=== PATIENT | male | born 1930 | race Caucasian/White ===

== ENCOUNTER 2018-03-14 16:52 | Emergency (ER) | payer OTHER ==
[2018-03-14] MEDS: 0.9 % SODIUM CHLORIDE 500 ML IV ONE (17:15)
--- NOTE | 2018-03-14 17:18 | ED Physician Documentation ---
General Adult - HISTORIAN Historian: paramedics, child (daughter) - [facility] Chief Complaint: Code Blue (cardiac arrest) Additional Information: 87yo white male with history of Atrial Fib, CHF and CKD. Had just gone to the bathroom when his family mambers helped him get back into his wheelchair. Shortly after exiting the bathroom he slumped over in his chair. Patient was lowered to the flood. No pulse could be felt and CPR was started by a bystander. When paramedics arrived patient appreared to be in PEA. Family members were indecisive about code status. Patient was intubated and IV was established. Patient was given 2 amps of Epi at the scene and in route. At arrival at ED patient had a palpable pulse. BS were equal bilaterally. Patient was continued with CPR for another cycle. Chest compression were then stopped. BP was obtained at 166/65. Patient did start to have some respiratory efforts. Family members were consulted they his power of flight information expediter requested that he be extubated. This was done. Patient had a black out slumping spell last week that last for seconds to a minute. Patient fully recovered at that time. - ROS CONST: no problems - PAST HX Past History: A-Fib, CHF Surgeries/Procedures: other (rotator cuff repair) Immunizations: referred to PCP Allergies/Adverse Reactions: Allergies Allergy/AdvReac Type Severity Reaction Status Date / Time tramadol Allergy Verified 03/14/18 19:05 Home Medications: Ambulatory Orders Medication Instructions Recorded Aspirin EC [Ecotrin] 81 mg PO D 03/14/18 Carvedilol [Coreg] 6.25 mg PO D 03/14/18 Furosemide 20 mg PO D 03/14/18 - SOCIAL HX Smoking History: non-smoker Alcohol Use: rarely Drug Use: none - FAMILY HX Family History: No - REVIEWED ASSESSMENTS Nursing Assessment Reviewed: Yes Vitals Reviewed: Yes Procedures Intubation Method: orotracheal Tube Size (cm): 7.0 Medications: Pancuronium, Succinylcholine Breath Sounds after Intubation: equal Intubation Complications: no complications Post Intubation Xray: Yes Progress - Progress Progress: 18:12 Dopamine started, at 5 mcg/kg BP 93/58, P 71, SAo2 at 90 on nonrebreatherFamily Please see the code sheet for medications, procedures and progress with code. On several occasions we did get a perfusing rhythm. However we were not able to maintain it. Family and DPA request that patient be extubated. This was done and patient placed on Nonrebreather mask. SAo2 at 97%. Critical Care Note - Critical Care Note Total Time (mins): 160 Comments: managing cardiac arrest ED Results Lab/Radiology - Radiology Radiology Impressions: Chest AP portable Date of Exam: March 14, 2018. History: CODE BLUE (Hx) / Findings: No comparison studies are provided. There is cardiomegaly and moderate pulmonary vascular congestion. The endotracheal tube is positioned near the hosea. A pacing pad superimposes the right thorax. Impression: Cardiomegaly and moderate pulmonary vascular congestion. General Adult Physical Exam - PHYSICAL EXAM GENERAL APPEARANCE: nonresponsive NECK: normal inspection, other (Mild JVD) RESPIRATORY: rales (few scattered) CVS: equal pulses, irregularly irregular rhy ABDOMEN: soft, no organomegaly, normal bowel sounds, no abdominal bruit SKIN: warm/dry, normal color NEURO: No: other (not able to access) Discharge Clincal Impression: Cardiopulmonary arrest Atrial fibrillation Qualifiers: Atrial fibrillation type: chronic Qualified Code(s): I48.2 - Chronic atrial fibrillation CHF (congestive heart failure) Qualifiers: Heart failure type: right heart failure due to left heart failure Qualified Code(s): I50.814 - Right heart failure due to left heart failure Referrals: Primary Doctor,No [Primary Care Provider] - 2 Days Condition: Critical Disposition: 20 Decision to Admit: [id number] Date of Decison to Admit: 03/14/18 Decision Time: 18:17
[2018-03-14] MEDS ORDERED: 0.9 % SODIUM CHLORIDE 1,000 ML IV SCH (17:30)
[2018-03-14] MEDS ORDERED: DOPAMINE HCL IN DEXTROSE IV ONE (17:35)
--- NOTE | 2018-03-14 19:10 | Diagnostic Imaging Report ---
GARY CARTWRIGHT [facility] [id number] [facility] [address] [id number] Report Submission Date: Mar 14, 2018 5:37:26 PM CDT Patient Study Name: MARLYN STEELE Date: Mar 14, 2018 4:58:22 PM CDT Modality Type: DX Gender: M Description: CHEST : [birth year] Institution: [facility] Physician: GARY CARTWRIGHT Chest AP portable Date of Exam: March 14, 2018. History: CODE BLUE (Hx) / Findings: No comparison studies are provided. There is cardiomegaly and moderate pulmonary vascular congestion. The endotracheal tube is positioned near the hosea. A pacing pad superimposes the right thorax. Impression: Cardiomegaly and moderate pulmonary vascular congestion. Electronically signed on Mar 14, 2018 5:37:26 PM CDT by: Wayne VUONG
[2018-03-14 20:27] VITALS: BP 126/69
[2018-03-14 20:31] LABS: MCV 114.2 fL (80.0-100.0); PLATELET COUNT 141 thou/uL (130-400); TOTAL PROTEIN 5.9 g/dL (6.0-8.5)
[2018-03-15 08:06] LABS: ABG BASE EXCESS -15.5 (-2 - +2); ABG PH 7.27 (7.35-7.45)
[2018-03-16 11:37] LABS: SEGMENTED NEUTROPHILS % 63 % (39-79)
[2018-03-16 11:38] LABS: ANISOCYTOSIS 1+ (NEGATIVE); BASOPHILS % 0 % (0-2); EOSINOPHILS % 2 % (0-7); HYPOCHROMASIA 2+ (NEGATIVE); MONOCYTES % 10 % (0-11)
== END 2018-03-14 20:00 | disposition expired ==
LOC: ED 16:52
DX: I46.9 Cardiac arrest, cause unspecified (principal); I48.2 Chronic atrial fibrillation; I50.814 Right heart failure due to left heart failure
CPT/HCPCS: 36600; 51702; 71045; 80053; 82553; 82803; 84484; 85025; 93005; J7060; 31500; 96365; 99291; 99292; S1016